=== PATIENT | male | born 1965 | race Caucasian/White ===

== ENCOUNTER → 2016-11-06 | Outpatient (REF) | payer OTHER ==
[2016-11-06 13:51] LABS: ALKALINE PHOSPHATASE 81 U/L (45-117); ALT/SGPT 24 U/L (12-78); ANION GAP 7 MEQ/L (8-16); AST/SGOT 17 U/L (15-37); BILIRUBIN,TOTAL 0.6 MG/DL (0.2-1.0); BLOOD UREA NITROGEN 16 MG/DL (7-18); CALCIUM LEVEL 8.7 MG/DL (8.5-10.1); CARBON DIOXIDE LEVEL 30 MEQ/L (21-32); CHLORIDE LEVEL 105 MEQ/L (98-107); CREATININE FOR GFR 0.93 MG/DL (0.70-1.30); GLOMERULAR FILTRATION RATE > 60.0 (>56); GLUCOSE, FASTING 80 MG/DL (70-105); POTASSIUM SERUM 4.2 MEQ/L (3.5-5.1); SODIUM LEVEL 142 MEQ/L (136-145)
[2016-11-06 13:52] LABS: ALBUMIN 3.7 GM/DL (3.2-5.2); ALBUMIN/GLOBULIN RATIO 1.16 (1.00-1.93); CHOLESTEROL LEVEL 137 MG/DL (<200); TOTAL PROTEIN 6.9 GM/DL (6.4-8.2); TRIGLYCERIDES LEVEL 133 MG/DL (<150)
== END ==
LOC: M SFHCADAM 11:04
PROVIDERS: ATTEND Family Medicine
DX: E78.6 Lipoprotein deficiency (principal); Z12.5 Encounter for screening for malignant neoplasm of prostate

== ENCOUNTER 2017-12-15 09:55 | Emergency (ER) | payer SELFPAY ==
[2017-12-15 10:55] LABS: BASO # 0.1 10^3/uL (0.0-0.2); BASO % 0.9 % (0.0-1.0); EOS # 0.1 10^3/uL (0.0-0.50); EOS % 0.9 % (0.0-3.0); HEMATOCRIT 44.8 % (42.0-52.0); HEMOGLOBIN 15.2 g/dl (13.5-17.5); IMMATURE GRANULOCYTE % 0.6 % (0-3.0); LYMPH # 1.5 10^3/uL (1.5-4.5); LYMPH % 27.9 % (24.0-44.0); MEAN CORPUSCULAR HEMOGLOBIN 29.3 pg (27.0-33.0); MEAN CORPUSCULAR HGB CONC 33.9 g/dl (32.0-36.5); MEAN CORPUSCULAR VOLUME 86.5 fl (80.0-96.0); MONO # 0.5 10^3/uL (0.0-0.8); MONO % 9.6 % (0.0-5.0); NEUTROPHILS # 3.3 10^3/uL (1.8-7.7); NEUTROPHILS % 60.1 % (36.0-66.0); PLATELET COUNT, AUTOMATED 252 10^3/uL (150-450); RED BLOOD COUNT 5.18 10^6/uL (4.30-6.10); WHITE BLOOD COUNT 5.4 10^3/uL (4.0-10.0)
[2017-12-15 11:34] LABS: ANION GAP 3 MEQ/L (8-16); BLOOD UREA NITROGEN 10 MG/DL (7-18); CARBON DIOXIDE LEVEL 32 MEQ/L (21-32); CHLORIDE LEVEL 106 MEQ/L (98-107); CREATININE FOR GFR 1.03 MG/DL (0.70-1.30); FREE THYROXINE INDEX 4.1 % (1.4-3.8); GLOMERULAR FILTRATION RATE > 60.0 (>56); GLUCOSE, FASTING 85 MG/DL (70-100); POTASSIUM SERUM 4.8 MEQ/L (3.5-5.1); SODIUM LEVEL 141 MEQ/L (136-145); T UPTAKE 39 % (33-40); THYROXINE (T4) 10.6 UG/DL (4.5-12.0)
[2017-12-15 12:22] LABS: PTH INTACT 46.1 PG/ML (18.5-88.0)
== END 2017-12-15 11:56 | disposition home or self-care (01) ==
LOC: M ED 09:55
DX: R59.1 Generalized enlarged lymph nodes (principal); I10 Essential (primary) hypertension; Z87.09 Personal history of other diseases of the respiratory system; Z87.891 Personal history of nicotine dependence; Z79.899 Other long term (current) drug therapy
CPT/HCPCS: 76536

== ENCOUNTER → 2018-08-18 | Outpatient (REF) | payer OTHER ==
[~2018-08-18] MED LIST: LIDO2SO PO; OMEP20CA3
[2018-08-18 20:39] LABS: HEMATOCRIT 45.1 % (42.0-52.0); HEMOGLOBIN 15.1 g/dl (13.5-17.5); MEAN CORPUSCULAR HEMOGLOBIN 29.4 pg (27.0-33.0); MEAN CORPUSCULAR HGB CONC 33.5 g/dl (32.0-36.5); MEAN CORPUSCULAR VOLUME 87.7 fl (80.0-96.0); PLATELET COUNT, AUTOMATED 272 10^3/uL (150-450); RED BLOOD COUNT 5.14 10^6/uL (4.30-6.10); WHITE BLOOD COUNT 6.6 10^3/uL (4.0-10.0)
[2018-08-18 20:58] LABS: ALBUMIN 4.2 GM/DL (3.2-5.2); ALT/SGPT 23 U/L (12-78); BILIRUBIN,TOTAL 0.5 MG/DL (0.2-1.0); BLOOD UREA NITROGEN 10 MG/DL (7-18); CALCIUM LEVEL 9.2 MG/DL (8.5-10.1); CARBON DIOXIDE LEVEL 28 MEQ/L (21-32); CHLORIDE LEVEL 104 MEQ/L (98-107); CHOLESTEROL LEVEL 181 MG/DL (<200); CHOLESTEROL RISK RATIO 6.241 (<5); CREATININE FOR GFR 1.13 MG/DL (0.70-1.30); FREE T4 1.11 NG/DL (0.76-1.46); GLOMERULAR FILTRATION RATE > 60.0 (>56); GLUCOSE, FASTING 91 MG/DL (70-100); HDL CHOLESTEROL 29 MG/DL (>40); LDL CHOLESTEROL 97 MG/DL (<100); NON-HDL-C 152 MG/DL; POTASSIUM SERUM 4.2 MEQ/L (3.5-5.1); SODIUM LEVEL 137 MEQ/L (136-145); TOTAL PROTEIN 7.2 GM/DL (6.4-8.2); TRIGLYCERIDES LEVEL 274 MG/DL (<150)
== END ==
LOC: M SFHCADAM 16:06
PROVIDERS: ATTEND Family Medicine
DX: Z12.5 Encounter for screening for malignant neoplasm of prostate (principal); K21.9 Gastro-esophageal reflux disease without esophagitis; E78.5 Hyperlipidemia, unspecified

== ENCOUNTER → 2018-09-07 | Outpatient (REF) | payer OTHER | LOC: M SMT 13:21 | PROVIDERS: ATTEND Nurse Practitioner Family | DX: R97.20 Elevated prostate specific antigen [PSA] (principal) ==

== ENCOUNTER → 2018-09-29 | Outpatient (CLI) | payer OTHER ==
--- NOTE | 2018-09-29 11:23 | REP ---
Prostate sonography: History: Elevated PSA. Sonographic findings: Trans rectal prostate sonography demonstrates unremarkable seminal vesicles. Prostate gland is heterogeneously enlarged with calcifications and cystic changes noted. Glandular dimensions are measured at 3.8 x 2.4 x 4.3 cm with a calculated glandular volume of 20.7 ml. Transrectal sonographic guidance is provided to Dr. Leon who performed trans rectal ultrasound guided needle biopsy procedure . Electronically Signed by Navjot Chin MD 09/29/2018 11:15 A
== END ==
LOC: M SMT PRO 08:45
PROVIDERS: ATTEND Urology
DX: C61 Malignant neoplasm of prostate (principal); R97.20 Elevated prostate specific antigen [PSA]; N40.2 Nodular prostate without lower urinary tract symptoms
CPT/HCPCS: 76872; 76942; G0416

== ENCOUNTER → 2018-10-07 | Outpatient (CLI) | payer OTHER ==
--- NOTE | 2018-10-07 17:28 | REP ---
WHOLE BODY BONE SCAN: Following the intravenous administration of 21.9 millicuries of technetium 99M MDP patient's whole body was imaged in the anterior and posterior projections. Additional oblique images of the thoracic and pelvic regions are performed as well as lateral views of the lower extremities and cranium. There is scattered arthritic uptake throughout the spine, also at the shoulders bilaterally and sternoclavicular joints, bilateral ribs, and hips and right knee joint. There is no compelling scintigraphic evidence of osseous metastases. Renal and bladder activity rare seen. IMPRESSION: Scattered arthritic uptake. No compelling scintigraphic evidence of osseous metastases Electronically Signed by John Meraz MD 10/08/2018 09:21 A
== END ==
LOC: M RAD 08:02
PROVIDERS: ATTEND Urology
DX: C61 Malignant neoplasm of prostate (principal)
CPT/HCPCS: 78306; A9503

== ENCOUNTER → 2018-10-08 | Outpatient (CLI) | payer OTHER ==
[~2018-10-08] MED LIST changes: +ISOVUE-370 76% 100ML VIAL (Q9967) As Ordered ONE
--- NOTE | 2018-10-09 05:50 | REP ---
Clinical: Prostate cancer. Technique: Axial contrast enhanced images from the lung bases to the pubic symphysis using 100 ml Isovue 370 intravenous contrast material with coronal and sagittal re-formations. Delayed images of the abdomen obtained. Comparison: None. Findings: Lung bases are clear. Visualized heart and pericardium normal. Liver, spleen, pancreas, gallbladder, bilateral adrenal glands and kidneys are normal. The enteric system is without obstruction or acute inflammatory process. Normal terminal ileum and appendix are identified in the right lower quadrant. Few scattered sigmoid diverticula noted without acute diverticulitis. Pelvis demonstrates normal bladder and relatively normal appearance to the prostate gland. No significant adenopathy. No ascites. No free air. Abdominal aorta and vasculature without aneurysm or dissection. Musculoskeletal structures are intact without focal osseous abnormality noted. Impression: 1. No acute abdominopelvic pathology appreciated. 2. Few scattered sigmoid diverticula without acute diverticulitis. 3. No evidence for metastatic disease, ascites, or adenopathy. Electronically Signed by Tanmay Fagan MD 10/09/2018 05:42 A
== END ==
LOC: M RAD 16:31
PROVIDERS: ATTEND Urology
DX: C61 Malignant neoplasm of prostate (principal)
CPT/HCPCS: 74177; Q9967

== ENCOUNTER → 2018-10-27 | Outpatient (CLI) | payer OTHER ==
[~2018-10-27] MED LIST changes: -ISOVUE-370 76% 100ML VIAL (Q9967) As Ordered ONE
--- NOTE | 2018-10-28 09:03 | RADONC ---
RADIATION ONCOLOGY NEW PATIENT CONSULTATION: DATE: 10/27/2018 CHART NUMBER: [id number] DIAGNOSIS: Adenocarcinoma, prostate, clinical stage T2b pathologic stage T2c, N0, M0, PSA 10.1, group stage II A. ICD-10 CODE: C61. ECOG PERFORMANCE STATUS: 0. HISTORY OF PRESENT ILLNESS: The patient is a 52-year-old white male who has been healthy most of his adult life. The patient elected to stop drinking and smoking and a workup was performed which included a PSA, which according to the patient, was approximately 3.7. The patient did not return to his primary care physician for about 2 years and a PSA was retaken at which time it had elevated to 10.1 and he also had an abnormal prostate exam. There was firmness unilaterally. The CT scan of the abdomen and pelvis was obtained which did not show any evidence of metastatic disease nor did it show radiographically that the tumor was outside the confines of the prostate. Bone scan was also negative. A biopsy was performed of the prostate on 09/29/2018 where 12 samples were examined 10 of which contained cancer. The highest grade was located in the left base and the left apex with a biopsy showing a Zeenat score of 8(4+4). The patient was felt to therefore have what would be a clinical T2b high risk adenocarcinoma of the prostate with an elevated PSA of 10.1 and was given options for a robotic radical prostatectomy and bilateral pelvic lymph node dissection versus external beam radiotherapy. His father had external beam radiotherapy and brachytherapy about 14 years ago and had done well and was treated at this institution. The patient elected to proceed with definitive external beam radiotherapy and was started on ADT. I believe he received Eligard therapy and he comes today to discuss the logistics of external beam radiotherapy in his overall management. PAST MEDICAL HEALTH: The patient relates the one incidence of pericarditis, which was presumed to be related to viral etiology and has a history of hypertension and EtOH abuse in the past. He quit in 2007. He also had a history of tracheal stenosis and has issues with erectile dysfunction, acute pericarditis April of 2008, GERD, anxiety, BPH dyslipidemia and had adenomatous polyps of the colon resected in August 2014. He had a tracheal resection and reanastomosis for tracheal stenosis as mentioned above at [facility] in 2007 with a tracheal dilatation in December 2007 and EGD, colonoscopy. Most recently a TRUS biopsy. FAMILY HISTORY: His father is alive but has had a history of prostate cancer and was treated in this institution. His mother is alive with hypertension and hypothyroidism. He has one sister and one sister living and healthy. Also has a brother who has diabetes mellitus and an additional brother with hypertension and diabetes. SOCIAL HISTORY: He used tobacco until 2007 but has a fairly extensive history of tobacco abuse as well as ethanol consumption. 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 CURRENT MEDICATIONS: He takes omeprazole and he has also received Eligard for hormonal deprivation therapy. ALLERGIES: BUSPAR. REVIEW OF SYSTEMS: GENERAL: The patient denies any nausea, vomiting and extreme fatigue, lethargy. ALLERGIC/IMMUNOLOGIC: Denies any significant allergies or immunologic deficiencies. CARDIOVASCULAR: He has a history of pericarditis, which was of viral etiology but denies any cardiac rhythmic irregularities, angina nausea, vomiting, dizziness. EENT: Denies any visual disturbances. Throat pain, odynophagia, dysphagia, dryness of mouth. GASTROINTESTINAL: Denies any nausea, vomiting, diarrhea or constipation. GENITOURINARY: Denies any significant problems starting or stopping the stream, hematuria or blood per rectum. HEAD: Denies any previous history of head trauma, headaches, vertigo. HEMATOLOGIC/LYMPHATIC: Denies any lymphadenopathy or easy bruising. INTEGUMENTARY: Denies any easy bruising or suspicious skin lesion. MUSCULOSKELETAL: He does have the chronic aches and pains but denies any focal muscular weakness or skeletal deformities. NEUROLOGIC: Denies any focal neurologic deficit or seizure activity. PSYCHIATRIC: Denies depression or significant anxiety. RESPIRATORY: Denies coughing, sputum production or hemoptysis. PHYSICAL EXAMINATION: Weight 179, temperature 98.4, pulse 67, respirations 16, BP 135/93, O2 saturation 98% on room air. HEENT: Normocephalic. EOMs intact. PERRLA. Fundi benign. LYMPHATICS: No palpable peripheral lymphadenopathy is appreciated. HEART: Regular without murmurs. ABDOMEN: Without evidence of hepatomegaly, masses, deep abdominal tenderness. EXTREMITIES: Without cyanosis, clubbing or edema. NEUROLOGIC: Examination grossly physiologic and nonfocal. RECTAL: Examination deferred today at patient's request. By history, he has BPH and has a firm prostate consistent with adenocarcinoma. IMPRESSION: Adenocarcinoma, prostate [place] 8 (4+4). The cancer involved 10 of the 12 samples taken; PSA 10.1. Clinical T1c versus T2b, N0, M0. PLAN OF RADIOTHERAPY: The patient would be an appropriate candidate for hormonal deprivation therapy as well as external beam radiotherapy. It appears as though he has chosen external beam radiotherapy as opposed to prostatectomy. We would recommend a course of definitive radiotherapy but first fiduciary markers must be placed and he is scheduled to have those placed on November 09, 2018. Thereafter, simulation will precede and the patient will received definitive local regional radiotherapy. The indications, possible side effects as well as alternatives to radiotherapy have explained to the patient in detail. He understands and is willing to proceed as outlined. Thank you for referring this fine gentleman to us and allowing us the opportunity of participation in his overall management. Most sincerely, cc: Dewey Leon MD [facility]ITALAddy
== END ==
LOC: M ONCR 10:11
PROVIDERS: ATTEND Radiology Radiation Oncology
DX: C61 Malignant neoplasm of prostate (principal)

== ENCOUNTER → 2018-11-09 | Outpatient (CLI) | payer OTHER ==
[~2018-11-09] MED LIST changes: -OMEP20CA3; +OMEP20CA4
--- NOTE | 2018-11-10 09:10 | REP ---
Sonographic guidance: History: Prostate cancer. Findings: Transrectal sonographic guidance is provided to Dr. Leon who performed prostate fiducial marker placement procedure. Electronically Signed by Navjot Chin MD 11/10/2018 04:44 P
== END ==
LOC: M SMT PRO 13:22
PROVIDERS: ATTEND Urology
DX: C61 Malignant neoplasm of prostate (principal)
CPT/HCPCS: 76872; A4648

== ENCOUNTER → 2018-12-02 | Outpatient (RCR) | payer OTHER ==
[2018-11-23 11:15] LABS: HEMATOCRIT 46.9 % (42.0-52.0); LYMPH % 25.6 % (24.0-44.0); MEAN CORPUSCULAR HEMOGLOBIN 29.3 pg (27.0-33.0); MEAN CORPUSCULAR HGB CONC 34.1 g/dl (32.0-36.5); MEAN CORPUSCULAR VOLUME 85.7 fl (80.0-96.0); NEUTROPHILS # 4.5 10^3/uL (1.8-7.7); NEUTROPHILS % 62.6 % (36.0-66.0); RED BLOOD COUNT 5.47 10^6/uL (4.30-6.10); WHITE BLOOD COUNT 7.2 10^3/uL (4.0-10.0)
--- NOTE | 2018-11-25 07:01 | RADONC ---
RADIATION ONCOLOGY SIMULATION NOTE DATE: 11/24/2018 CHART #: [id number] Mr. Colmenares was taken to the CT scan for CT simulation of his prostate field. CT was accomplished without difficulty or discomfort. Radiation treatment planning is underway and radiation treatments will begin subsequently. An immobilization device was created and will be used throughout the course of treatment. It was created without difficulty or discomfort. I was physically present throughout the course of CT simulation.
[~2018-12-02] MED LIST changes: +OMEP1CAP73; -OMEP20CA4
== END ==
LOC: M ONCR 11-23 10:16
PROVIDERS: ATTEND Radiology Radiation Oncology
DX: C61 Malignant neoplasm of prostate (principal)

== ENCOUNTER 2019-01-01 08:36 | Outpatient (RCR) | payer OTHER ==
--- NOTE | 2018-12-07 09:42 | RADONC ---
RADIATION ONCOLOGY PROGRESS NOTE DATE OF SERVICE: 12/07/2018 PROGRESS NOTE: The patient has a diagnosis of adenocarcinoma of the prostate, Zeenat is 8 (4 + 4) and is currently receiving local regional radiotherapy to the prostate. He has achieved a dose of 900 cGy of an anticipated 4500 cGy with field reductions to include an additional 900 cGy, as well as a final field reduction to include an additional 2520 cGy. This would bring his total dose to 7920 cGy in approximately 44 fractions. Thus far, he is doing relatively well, although he does experience some minimal fatigue. He denies any significant other side effects referable to his disease or to his treatments. REVIEW OF SYSTEMS: He denies any nausea, vomiting, diarrhea, dysuria, hematuria, or blood per rectum. His energy level is such that he is able to maintain most day-to-day activities without any alteration of his lifestyle. Skin irritation is not a major issue for him. EXAMINATION FINDINGS: The skin within the irradiated volume shows neither erythema nor desquamation. Lymphatics: No palpable peripheral lymphadenopathy is appreciated. The remainder of the physical examination is unchanged. IMPRESSION: Tolerating therapy well. PLAN: Treatments to continue.
--- NOTE | 2018-12-15 16:27 | RADONC ---
RADIATION ONCOLOGY PROGRESS NOTE DATE: 12/15/2018 CHART NUMBER: [id number] PROGRESS NOTE: The patient has a diagnosis of adenocarcinoma of the prostate and is currently receiving local regional radiotherapy. He has received a dose of 1800 cGy of an initial 4500 cGy to be followed by further field reductions and dose escalations. He has no complaints referable to his disease or to his treatments. REVIEW OF SYSTEMS: He denies nausea, vomiting, diarrhea, dysuria, hematuria, or blood per rectum. His energy level is such that he is still able to maintain most day-to-day activities without any alteration of his lifestyle. Skin irritation is not a major issue for him. He does at times feel like he may have a internal hemorrhoid when he defecates, but he has had no blood per rectum yet. EXAMINATION FINDINGS: The skin within the irradiated volume shows neither erythema nor desquamation. Lymphatics: No palpable peripheral lymphadenopathy. The remainder of the physical examination is unchanged. IMPRESSION: Tolerating therapy well. PLAN: Treatments to continue.
--- NOTE | 2018-12-23 14:28 | RADONC ---
RADIATION ONCOLOGY PROGRESS NOTE DATE: 12/21/2018 CHART NUMBER: [id number] PROGRESS NOTE: Mr. Colmenares is presently at a dose of 2700 cGy to his prostate and is tolerating treatments quite well at this point with no significant complaints related to his radiation therapy. He is having no urinary or bowel difficulties. No bone pain. He does have some fatigue. REVIEW OF SYSTEMS: The patient's review of systems is positive for fatigue but is otherwise largely noncontributory. Denies nausea, vomiting, fevers, chills, night sweats, diplopia, headaches, anxiety or depression, anorexia, weight loss, visual disturbances, chest pain, urinary or bowel difficulties, bone pain, or neurological problems. PHYSICAL EXAMINATION: The patient's skin is in excellent condition with no evidence of moist or dry desquamation. The remainder of his physical exam remains unchanged. Mr. Colmenares is tolerating treatments quite well and radiation will continue as scheduled.
--- NOTE | 2018-12-30 06:11 | RADONC ---
RADIATION ONCOLOGY PROGRESS NOTE DATE: 12/28/2018 CHART #: [id number] Mr. Colmenares is presently at a dose of 3420 cGy to his prostate and is tolerating treatments quite well at this point with no complaints related to his radiation therapy. He is having no urinary or bowel difficulties and no bone pain. REVIEW OF SYSTEMS: The patient's review of systems is noncontributory. Denies nausea, vomiting, fevers, chills, night sweats, diplopia, headaches, anxiety or depression, anorexia, weight loss, visual disturbances, chest pain, urinary or bowel difficulties, bone pain, or neurological problems. PHYSICAL EXAMINATION: The patient's skin is in good condition with no evidence of radiation change present. There is no moist or dry desquamation. The remainder of his physical exam remains unchanged. Mr. Colmenares is tolerating treatments quite well and radiation will continue as scheduled.
[~2019-01-01 08:36] MED LIST changes: -OMEP1CAP73; +OMEP20CA4
== END 2019-01-02 ==
LOC: M ONCR 08:36
PROVIDERS: ATTEND Radiology Radiation Oncology
DX: C61 Malignant neoplasm of prostate (principal)

== ENCOUNTER → 2019-02-01 | Outpatient (RCR) | payer OTHER ==
--- NOTE | 2019-01-06 08:20 | RADONC ---
RADIATION ONCOLOGY PROGRESS NOTE DATE: 01/05/2019 CHART NUMBER: [id number] Mr. Colmenares is currently receiving local regional radiotherapy. He has had a dose of 4500 cGy of an anticipated 7920 cGy. He appears to be tolerating his radiotherapy reasonably well although he does experience some sensitivity in the urethral area and in the bladder. He claims that he has no bleeding or a significant skin irritation. His energy level is excellent and he is able to maintain most day-to-day activities without any alteration of his lifestyle. Examination findings: The skin within the irradiated volume shows neither erythema nor desquamation. There is no palpable peripheral lymphadenopathy. The remainder of the physical examination is unchanged. IMPRESSION: Tolerating therapy well. PLAN: Treatments to continue. MTDD
--- NOTE | 2019-01-11 09:34 | RADONC ---
RADIATION ONCOLOGY PROGRESS NOTE DATE: 01/11/2019 CHART #: [id number] Clifton Colmenares with a diagnosis of adenocarcinoma of the prostate, [place] 8 (4+4) is currently receiving local regional radiotherapy to his prostate. His current dose is 5040 cGy of an anticipated 7920 cGy. He is tolerating his radiotherapy quite well with absolutely no complaints referable to his disease or to his treatments. REVIEW OF SYSTEMS: He specifically denies any nausea, vomiting, diarrhea, dysuria, hematuria, or blood per rectum. His energy level is such that he is able to maintain most day-to-day activities without any alteration of his lifestyle. Skin irritation is denied. EXAMINATION FINDINGS: The skin within the irradiated volume shows neither erythema nor desquamation. Lymphatics: No palpable peripheral lymphadenopathy is appreciated in the cervical, supraclavicular, axillary, or inguinal lymph node chains. Lungs are clear. IMPRESSION: Tolerating therapy well. PLAN: Treatments to continue. Thank you for allowing us the opportunity of participation in the management of this very fine gentleman. Most sincerely.
--- NOTE | 2019-01-20 12:45 | RADONC ---
RADIATION ONCOLOGY PROGRESS NOTE DATE: 01/18/2019 CHART #: [id number] Mr. Colmenares is presently at a dose of 5940 cGy to his prostate and is tolerating treatments quite well at this point with no complaints related to his radiation therapy. He is having no urinary or bowel difficulties and no bone pain. He did have some constipation over the weekend. REVIEW OF SYSTEMS: The patient's review of systems is noncontributory. Denies nausea, vomiting, fevers, chills, night sweats, diplopia, headaches, anxiety or depression, anorexia, weight loss, visual disturbances, chest pain, urinary or bowel difficulties, bone pain, or neurological problems. PHYSICAL EXAMINATION: The patient's skin is in excellent condition with no evidence of moist or dry desquamation. The remainder of his physical exam remains unchanged. Mr. Colmenares is tolerating treatments quite well and radiation will continue as scheduled.
--- NOTE | 2019-01-26 10:10 | RADONC ---
RADIATION ONCOLOGY PROGRESS NOTE DATE: 01/25/2019 CHART NUMBER: [id number] Mr. Colmenares is presently at a dose of 6840 cGy to his prostate and is tolerating treatments quite well at this point with no difficulties related to his radiation therapy other than some increased urination. The patient's review of systems is positive for increased urination but is otherwise noncontributory. Denies nausea, vomiting, fevers, chills, night sweats, diplopia, headaches, anxiety or depression, anorexia, weight loss, visual disturbances, chest pain, urinary or bowel difficulties, bone pain, or neurological problems. PHYSICAL EXAMINATION: The patient's skin is in good condition with no evidence of moist or dry desquamation. The remainder of his physical exam remains unchanged. Mr. Colmenares is tolerating treatments quite well, and radiation will continue as scheduled.
--- NOTE | 2019-02-01 09:53 | RADONC ---
RADIATION ONCOLOGY PROGRESS NOTE DATE: 02/01/2019 CHART #: [id number] Mr. Colmenares is presently at a dose of 7740 cGy to his prostate and is tolerating treatments quite well at this point with no complaints related to his radiation therapy. He is having no significant urinary or bowel difficulties and no bone pain. REVIEW OF SYSTEMS: The patient's review of systems is largely noncontributory. Denies nausea, vomiting, fevers, chills, night sweats, diplopia, headaches, anxiety or depression, anorexia, weight loss, visual disturbances, chest pain, urinary or bowel difficulties, bone pain, or neurological problems. PHYSICAL EXAMINATION: The patient's skin is in good condition with no evidence of moist or dry desquamation. The remainder of his physical exam remains unchanged. Mr. Colmenares is tolerating treatments quite well and radiation will continue as scheduled.
== END ==
LOC: M ONCR 01-05 08:32
PROVIDERS: ATTEND Radiology Radiation Oncology
DX: C61 Malignant neoplasm of prostate (principal)

== ENCOUNTER 2019-02-02 08:20 | Outpatient (RCR) | payer OTHER ==
--- NOTE | 2019-02-02 13:32 | RADONC ---
RADIATION ONCOLOGY TREATMENT SUMMARY DATE: CHART: [id number] DIAGNOSIS: Prostate cancer. STAGE: II A, T2c, N0, M0, PSA 10.1, Zeenat score 8 (4-4). ECOG PERFORMANCE STATUS 0 TREATMENT SUMMARY: Mr. Colmenares is a very pleasant, 53-year-old white male with the diagnosis of a stage II A, T2c, N0, M0, poorly differentiated Zeenat score 8 (4-4) adenocarcinoma of the prostate with a PSA level of 10.1 who presented to us for consideration of definitive external beam radiation therapy with IMRT/IGRT. We treated the patient to his prostate for a total dose of 7920 cGy delivered in 44 fractions of 180 cGy each over 61 elapsed days from 12/01/2018 through 02/02/2019. The patient's prostate was treated on the linear accelerator utilizing a 6 MV photon beam via IMRT/IGRT. We initially treated the prostate, seminal vesicles and first echelon of lymph nodes to a dose of 4500 cGy delivered an 25 fractions of 180 cGy each. We subsequently coned down to deliver an additional 900 cGy to the prostate and seminal vesicles bringing the seminal vesicles to a total dose of 5400 cGy. An additional 2520 cGy was then delivered to the prostate itself once again bringing it to a total dose of 7920 cGy. Mr. Colmenares tolerated his treatments quite well and was able complete therapy as prescribed without interruption. I have scheduled the patient to see me again in 1 month for further followup. He will also continue to be followed by his other physicians as well. Thank you for allowing us to participate in the care of this very pleasant gentleman. If I could be of any further assistance or provide you any information, please free to contact me anytime. As always, warm regards. cc: Dewey Leon MD
== END 2019-03-04 ==
LOC: M ONCR 08:20
PROVIDERS: ATTEND Radiology Radiation Oncology
DX: C61 Malignant neoplasm of prostate (principal)

== ENCOUNTER → 2019-03-08 | Outpatient (CLI) | payer OTHER | LOC: M LAB 09:53 | PROVIDERS: ATTEND Radiology Radiation Oncology | DX: C61 Malignant neoplasm of prostate (principal) ==

== ENCOUNTER → 2019-03-10 | Outpatient (CLI) | payer OTHER ==
--- NOTE | 2019-03-10 14:23 | RADONC ---
RADIATION ONCOLOGY FOLLOWUP NOTE DATE: 03/10/2019 CHART NUMBER: [id number] DIAGNOSIS: Adenocarcinoma, prostate, clinical stage T2b, pathologic stage [id number]; PSA 10.1, group stage IIA. ECOG PERFORMANCE STATUS: 0. Mr. Colmenares returns after having completed a course of local regional radiotherapy to the prostate bed. He has no complaints referable to his disease or to his treatments with the exception of some continued urgency. Otherwise he denies any nausea, vomiting, diarrhea, significant dysuria, hematuria or blood per rectum. His energy level is excellent and he is able to maintain day-to-day activities without any alteration of his lifestyle. He completed radiotherapy on 02/02/2019. REVIEW OF SYSTEMS: As stated he basically was of normal lifestyle without evidence of any nausea, vomiting, diarrhea, dysuria, hematuria or blood per rectum. He also denies any other symptoms of bone pain, headaches, double vision or any neurologic deficits. EXAMINATION FINDINGS: The skin within the irradiated volume shows minimal hyperpigmentation. There is no palpable peripheral lymphadenopathy. Lungs are clear. Heart regular without murmurs. Abdomen without evidence of hepatomegaly, masses, deep abdominal tenderness. Pelvis/rectal examination deferred. His most recent PSA was noted to be 0.09 which is a significant reduction. IMPRESSION: The patient is doing well with a significant reduction of his PSA now at 0.02 from 10.10. PLAN: The patient has agreed and actually desires to continue followup visit with Dr. Leon and he will attend his office today to have an appointment reissued to him as he has forgotten when his next appointment was. Thank you for allowing us the opportunity of participation the management of this very fine gentleman. cc: Dewey Leon MD
== END ==
LOC: M ONCR 11:10
PROVIDERS: ATTEND Radiology Radiation Oncology
DX: C61 Malignant neoplasm of prostate (principal); Z92.3 Personal history of irradiation

== ENCOUNTER → 2019-05-06 | Outpatient (CLI) | payer OTHER ==
[~2019-05-06] MED LIST changes: +OMEP-172; -OMEP20CA4
--- NOTE | 2019-05-06 12:53 | REP ---
Clinical: Abnormal prominence to the sternum. Technique: Oblique and lateral views of the sternum. Findings: There is no evidence for acute fracture or dislocation. Subtle wavy sclerosis along the contour of the mid to distal sternum likely represents chronic change possibly related to costochondritis. Impression: No acute sternal injury or abnormality. Subtle sclerosis suggest chronic change. Electronically Signed by Tanmay Fagan MD 05/06/2019 12:44 P
== END ==
LOC: M ADAMS 12:16
PROVIDERS: ATTEND Family Medicine
DX: Q74.0 Other congenital malformations of upper limb(s), including shoulder girdle (principal)

== ENCOUNTER → 2019-05-16 | Outpatient (CLI) | payer OTHER ==
[~2019-05-16] MED LIST changes: -OMEP-172; +OMEP1CAP73
== END ==
LOC: M LAB 11:14
PROVIDERS: ATTEND Urology
DX: C61 Malignant neoplasm of prostate (principal)

== ENCOUNTER → 2019-08-10 | Outpatient (REF) | payer OTHER ==
[2019-08-10 12:51] LABS: HEMATOCRIT 41.6 % (42.0-52.0); MEAN CORPUSCULAR HEMOGLOBIN 28.9 pg (27.0-33.0); MEAN CORPUSCULAR HGB CONC 33.7 g/dl (32.0-36.5); PLATELET COUNT, AUTOMATED 239 10^3/uL (150-450); RED BLOOD COUNT 4.84 10^6/uL (4.30-6.10); WHITE BLOOD COUNT 4.4 10^3/uL (4.0-10.0)
[2019-08-10 13:01] LABS: ALT/SGPT 25 U/L (12-78); BILIRUBIN,TOTAL 0.7 MG/DL (0.2-1.0); BLOOD UREA NITROGEN 10 MG/DL (7-18); CALCIUM LEVEL 9.2 MG/DL (8.5-10.1); CARBON DIOXIDE LEVEL 31 MEQ/L (21-32); CHLORIDE LEVEL 104 MEQ/L (98-107); CHOLESTEROL LEVEL 201 MG/DL (<200); CHOLESTEROL RISK RATIO 5.153 (<5); CREATININE FOR GFR 0.84 MG/DL (0.70-1.30); GLOMERULAR FILTRATION RATE > 60.0 (>56); GLUCOSE, FASTING 73 MG/DL (70-100); HDL CHOLESTEROL 39 MG/DL (>40); LDL CHOLESTEROL 140 MG/DL (<100); NON-HDL-C 162 MG/DL; POTASSIUM SERUM 4.2 MEQ/L (3.5-5.1); SODIUM LEVEL 137 MEQ/L (136-145); TOTAL PROTEIN 7.5 GM/DL (6.4-8.2); TRIGLYCERIDES LEVEL 112 MG/DL (<150)
== END ==
LOC: M SFHCADAM 10:08
PROVIDERS: ATTEND Family Medicine
DX: K21.9 Gastro-esophageal reflux disease without esophagitis (principal); E78.5 Hyperlipidemia, unspecified

== ENCOUNTER → 2019-12-02 | Outpatient (CLI) | payer OTHER | LOC: M LAB 09:06 | PROVIDERS: ATTEND Nurse Practitioner Family | DX: C61 Malignant neoplasm of prostate (principal) ==

== ENCOUNTER → 2020-06-03 | Outpatient (CLI) | payer OTHER | LOC: M LAB 11:58 | PROVIDERS: ATTEND Urology | DX: C61 Malignant neoplasm of prostate (principal) ==

== ENCOUNTER → 2020-07-04 | Outpatient (REF) | payer OTHER | LOC: M LAB REF 19:16 | PROVIDERS: ATTEND Surgery | DX: L08.9 Local infection of the skin and subcutaneous tissue, unspecified (principal) ==

== ENCOUNTER → 2020-07-18 | Outpatient (REF) | payer OTHER | LOC: M LAB REF 08:47 | PROVIDERS: ATTEND Surgery | DX: L72.3 Sebaceous cyst (principal) ==

== ENCOUNTER → 2020-09-20 | Outpatient (CLI) | payer OTHER ==
[2020-09-20 11:28] LABS: ALBUMIN 4.2 GM/DL (3.2-5.2); ALT/SGPT 28 U/L (12-78); BILIRUBIN,TOTAL 0.6 MG/DL (0.2-1.0); BLOOD UREA NITROGEN 8 MG/DL (7-18); CALCIUM LEVEL 9.4 MG/DL (8.5-10.1); CARBON DIOXIDE LEVEL 31 MEQ/L (21-32); CHLORIDE LEVEL 105 MEQ/L (98-107); CHOLESTEROL LEVEL 213 MG/DL (<200); CHOLESTEROL RISK RATIO 4.346 (<5); CREATININE FOR GFR 0.86 MG/DL (0.70-1.30); GLOMERULAR FILTRATION RATE > 60.0 (>56); GLUCOSE, FASTING 87 MG/DL (70-100); HDL CHOLESTEROL 49 MG/DL (>40); LDL CHOLESTEROL 133 MG/DL (<100); NON-HDL-C 164 MG/DL; SODIUM LEVEL 140 MEQ/L (136-145); TOTAL PROTEIN 7.5 GM/DL (6.4-8.2); TRIGLYCERIDES LEVEL 157 MG/DL (<150)
== END ==
LOC: M LAB 09:39
PROVIDERS: ATTEND Family Medicine
DX: E78.5 Hyperlipidemia, unspecified (principal)

== ENCOUNTER → 2020-12-04 | Outpatient (CLI) | payer OTHER | LOC: M LAB 14:46 | PROVIDERS: ATTEND Urology | DX: C61 Malignant neoplasm of prostate (principal) ==

== ENCOUNTER → 2021-06-13 | Outpatient (CLI) | payer OTHER | LOC: M LAB 17:54 | PROVIDERS: ATTEND Urology | DX: C61 Malignant neoplasm of prostate (principal) ==

== ENCOUNTER → 2021-12-10 | Outpatient (CLI) | payer OTHER | LOC: M LAB 12:10 | PROVIDERS: ATTEND Urology | DX: C61 Malignant neoplasm of prostate (principal) ==

== ENCOUNTER → 2022-07-02 | Outpatient (REF) | payer OTHER ==
[2022-07-02 13:28] LABS: HEMATOCRIT 45.9 % (42.0-52.0); HEMOGLOBIN 15.2 g/dl (13.5-17.5); MEAN CORPUSCULAR HEMOGLOBIN 28.8 pg (27.0-33.0); MEAN CORPUSCULAR HGB CONC 33.1 g/dl (32.0-36.5); MEAN CORPUSCULAR VOLUME 87.1 fl (80.0-96.0); PLATELET COUNT, AUTOMATED 236 10^3/uL (150-450); RED BLOOD COUNT 5.27 10^6/uL (4.30-6.10); WHITE BLOOD COUNT 6.2 10^3/uL (4.0-10.0)
[2022-07-02 13:57] LABS: ALKALINE PHOSPHATASE 88 U/L (46-116); ALT/SGPT 20 U/L (7.0-40); AST/SGOT 18 U/L (<34); BILIRUBIN,TOTAL 0.8 MG/DL (0.3-1.2); BLOOD UREA NITROGEN 13 MG/DL (9-23); CALCIUM LEVEL 9.7 MG/DL (8.5-10.1); CARBON DIOXIDE LEVEL 29 MMOL/L (20-31); CHLORIDE LEVEL 104 MMOL/L (98-107); CHOLESTEROL LEVEL 169 MG/DL (<200); CHOLESTEROL RISK RATIO 4.66 (<5); FREE T4 1.28 NG/DL (0.89-1.76); GLOMERULAR FILTRATION RATE > 60.0 (>56); GLUCOSE, FASTING 94 MG/DL (60-100); HDL CHOLESTEROL 36.2 MG/DL (>40); NON-HDL-C 133 MG/DL; POTASSIUM SERUM 4.6 MMOL/L (3.5-5.1); SODIUM LEVEL 138 MMOL/L (136-145)
[2022-07-02 14:10] LABS: HEMOGLOBIN A1c 5.6 % (4.0-6.0)
[2022-07-02 15:32] LABS: LDL CHOLESTEROL 114.2 MG/DL (<100); TRIGLYCERIDES LEVEL 93 MG/DL (<150)
== END ==
LOC: M SFHCADAM 10:08
PROVIDERS: ATTEND Family Medicine
DX: J95.03 Malfunction of tracheostomy stoma (principal); Z86.010 Personal history of colon polyps; E78.5 Hyperlipidemia, unspecified; Z13.1 Encounter for screening for diabetes mellitus

== ENCOUNTER 2023-06-23 11:02 | Emergency (ER) | payer OTHER ==
[~2023-06-23] VITALS: Ht 180.3 cm; Wt 72.6 kg
[~2023-06-23 11:02] MED LIST changes: +LIDO15SO9 PO; -LIDO2SO PO; +OMEP-173 PO
[2023-06-23 13:20] LABS: BASO # 0.1 10^3/uL (0.0-0.2); BASO % 0.8 % (0.0-1.0); EOS # 0.1 10^3/uL (0.0-0.5); EOS % 0.8 % (0.0-3.0); HEMATOCRIT 47.3 % (42.0-52.0); HEMOGLOBIN 15.8 g/dl (13.5-17.5); LYMPH # 1.1 10^3/uL (1.5-5.0); LYMPH % 11.5 % (24.0-44.0); MEAN CORPUSCULAR HEMOGLOBIN 29.4 pg (27.0-33.0); MEAN CORPUSCULAR HGB CONC 33.4 g/dl (32.0-36.5); MEAN CORPUSCULAR VOLUME 88.1 fl (80.0-96.0); MONO # 0.8 10^3/uL (0.0-0.8); MONO % 8.7 % (2.0-8.0); NEUTROPHILS # 7.4 10^3/uL (1.5-8.5); NEUTROPHILS % 77.9 % (36.0-66.0); PLATELET COUNT, AUTOMATED 226 10^3/uL (150-450); RED BLOOD COUNT 5.37 10^6/uL (4.30-6.10); WHITE BLOOD COUNT 9.6 10^3/uL (4.0-10.0)
[2023-06-23 13:31] LABS: INR 0.99; PROTHROMBIN TIME 12.8 SECONDS (12.5-14.5)
[2023-06-23 13:32] LABS: PARTIAL THROMBOPLASTIN TIME 37.6 SECONDS (24.8-34.2)
[2023-06-23 13:52] LABS: BLOOD UREA NITROGEN 12 MG/DL (9-23); CALCIUM LEVEL 9.4 MG/DL (8.5-10.1); CARBON DIOXIDE LEVEL 29 MMOL/L (20-31); CHLORIDE LEVEL 103 MMOL/L (98-107); CREATININE FOR GFR 0.78 MG/DL (0.70-1.30); GLOMERULAR FILTRATION RATE > 60.0 (>56); GLUCOSE, FASTING 87 MG/DL (60-100); POTASSIUM SERUM 4.5 MMOL/L (3.5-5.1); SODIUM LEVEL 136 MMOL/L (136-145)
[2023-06-23 15:59] LABS: INR 0.98; PROTHROMBIN TIME 12.7 SECONDS (12.5-14.5)
[2023-06-23 16:00] LABS: PARTIAL THROMBOPLASTIN TIME 38.9 SECONDS (24.8-34.2)
[2023-06-23] MEDS ORDERED: HEPARIN SOD (PORCINE) 5000UNITS/ML 1ML VIAL/SYRINGE IV PRN (17:10)
[2023-06-23] MEDS: HEPARIN SOD (PORCINE) 5000UNITS/ML 1ML VIAL/SYRINGE IV ONE (17:33)
[2023-06-23] MEDS: HEPARIN DRIP 25,000 UNITS in IV 1 EA IV SCH (17:38)
[2023-06-23 19:33] VITALS: BP 132/86; TEMP 98; O2SAT 97
[2023-06-26 09:15] LABS: DRVV SCREEN 55.8 SECONDS
[2023-06-26 09:18] LABS: PTT LUPUS TYPE ANTICOAG SCREEN 1.33 (0-1.20)
[2023-06-26 09:26] LABS: DRVV CONFIRM 33.2 SECONDS; LUPUS CONFIRM RATIO 0.84
[2023-06-26 09:27] LABS: NORMALIZED RATIO 1.58 (0.00-1.20)
[2023-07-03 15:08] LABS: ANTI THROMBIN 3 ANTIGEN IMMUNO 122 % (72-124); ANTI THROMBIN 3 FUNCT ACTIVITY 110 % (75-135); CARDIOLIPIN IGA ANTIBODY 14 APL U/mL (0-11); CARDIOLIPIN IGG ANTIBODY 15 GPL U/mL (0-14); CARDIOLIPIN IGM ANTIBODY 42 MPL U/mL (0-12); PHOSPHOLIPIDS LEVEL 174 mg/dL (127-261); PROTEIN C FUNCTIONAL ACTIVITY 107 % (73-180); PROTEIN S FUNCTIONAL ACTIVITY 77 % (63-140)
== END 2023-06-23 19:36 | disposition short-term general hospital (02) ==
LOC: M ED 11:02
DX: I82.622 Acute embolism and thrombosis of deep veins of left upper extremity (principal); I10 Essential (primary) hypertension; J39.8 Other specified diseases of upper respiratory tract; I31.9 Disease of pericardium, unspecified; K21.9 Gastro-esophageal reflux disease without esophagitis; F12.90 Cannabis use, unspecified, uncomplicated; Z88.8 Allergy status to other drugs, medicaments and biological substances; Z79.899 Other long term (current) drug therapy

== ENCOUNTER → 2023-08-12 | Outpatient (REF) | payer OTHER | LOC: M SFHCADAM 14:20 | PROVIDERS: ATTEND Family Medicine | DX: C61 Malignant neoplasm of prostate (principal); I82.622 Acute embolism and thrombosis of deep veins of left upper extremity; N52.9 Male erectile dysfunction, unspecified ==

== ENCOUNTER → 2023-08-27 | Outpatient (CLI) | payer OTHER | LOC: M LAB 11:39 | PROVIDERS: ATTEND Urology | DX: C61 Malignant neoplasm of prostate (principal) ==

== ENCOUNTER 2023-09-15 11:31 | Emergency (ER) | payer OTHER ==
[~2023-09-15] VITALS: Ht 180.3 cm; Wt 74.6 kg
[2023-09-15] MEDS ORDERED: OMEP40CA5 (11:36)
[2023-09-15] MEDS ORDERED: ELIQ5TAB (11:36)
[2023-09-15 13:21] VITALS: BP 135/92; TEMP 96.8; O2SAT 95
== END 2023-09-15 13:22 | disposition home or self-care (01) ==
LOC: M ED 11:31
DX: M25.511 Pain in right shoulder (principal); K21.9 Gastro-esophageal reflux disease without esophagitis; Z87.891 Personal history of nicotine dependence; Z88.8 Allergy status to other drugs, medicaments and biological substances; Z79.899 Other long term (current) drug therapy

== ENCOUNTER → 2024-01-20 | Outpatient (CLI) | payer OTHER ==
[~2024-01-20] MED LIST changes: +ELIQ5TAB; +OMEP40CA5
== END ==
LOC: M LAB 12:09
PROVIDERS: ATTEND Urology
DX: C61 Malignant neoplasm of prostate (principal)

== ENCOUNTER → 2024-08-10 | Outpatient (CLI) | payer OTHER ==
[2024-08-10 18:58] LABS: ALBUMIN 4.2 G/DL (3.2-5.2); ALKALINE PHOSPHATASE 76 U/L (40-129); ALT/SGPT 21 U/L (7.0-40); AST/SGOT 21 U/L (<34); BILIRUBIN,TOTAL 0.8 MG/DL (0.3-1.2); BLOOD UREA NITROGEN 10 MG/DL (9-23); CALCIUM LEVEL 9.5 MG/DL (8.3-10.6); CARBON DIOXIDE LEVEL 27 MMOL/L (20-31); CHLORIDE LEVEL 104 MMOL/L (98-107); CHOLESTEROL LEVEL 167 MG/DL (<200); CHOLESTEROL RISK RATIO 4.36 (<5); CREATININE FOR GFR 0.89 MG/DL (0.70-1.30); GLOMERULAR FILTRATION RATE > 60.0 (>49); GLUCOSE, FASTING 92 MG/DL (74-106); HDL CHOLESTEROL 38.3 MG/DL (>40); LDL CHOLESTEROL 109.5 MG/DL (<100); NON-HDL-C 128.7 MG/DL; POTASSIUM SERUM 4.4 MMOL/L (3.5-5.1); SODIUM LEVEL 139 MMOL/L (136-145); TOTAL PROTEIN 7.2 G/DL (5.7-8.2); TRIGLYCERIDES LEVEL 96 MG/DL (<150)
[2024-08-10 18:59] LABS: FREE T4 1.44 NG/DL (0.89-1.76); THYROID STIMULATING HORMONE 1.305 uIU/ML (0.55-4.78)
[2024-08-10 19:02] LABS: HEMOGLOBIN 15.4 g/dl (13.5-17.5); MEAN CORPUSCULAR HEMOGLOBIN 29.3 pg (27.0-33.0); MEAN CORPUSCULAR HGB CONC 33.5 g/dl (32.0-36.5); MEAN CORPUSCULAR VOLUME 87.5 fl (80.0-96.0); PLATELET COUNT, AUTOMATED 216 10^3/uL (150-450); RED BLOOD COUNT 5.26 10^6/uL (4.30-6.10)
[2024-08-10 19:09] LABS: HEMOGLOBIN A1c 5.5 % (4.0-6.0)
== END ==
LOC: M PLALAB 13:06
PROVIDERS: ATTEND Family Medicine
DX: Z87.09 Personal history of other diseases of the respiratory system (principal); E78.5 Hyperlipidemia, unspecified; Z13.1 Encounter for screening for diabetes mellitus